=== PATIENT | male | born 1965 | race Two or more races ===

== ENCOUNTER 2024-06-09 14:59 | Emergency (ER) | payer OTHER ==
[~2024-06-09] VITALS: Ht 177.8 cm; Wt 100.0 kg
[2024-06-09 16:00] VITALS: BP 137/101; PULSE 114; RESP 17; TEMP 98.7; O2SAT 98
== END 2024-06-09 16:33 | disposition home or self-care (01) ==
LOC: ER 15:06
DX: S01.01XA Laceration without foreign body of scalp, initial encounter (principal); W18.09XA Striking against other object with subsequent fall, initial encounter; Y93.89 Activity, other specified; Y92.89 Other specified places as the place of occurrence of the external cause; Y99.8 Other external cause status
CPT/HCPCS: 12001